=== PATIENT | male | born 1975 | race Caucasian/White ===

== ENCOUNTER 2016-11-20 22:45 | Emergency (ER) | payer BC, OTHER ==
[~2016-11-20] VITALS: Ht 185.4 cm; Wt 97.5 kg
[2016-11-20 22:53] VITALS: BP 162/108
[2016-11-20] MEDS ORDERED: CEFTRIAXONE 1 G VIAL ONE (23:24)
[2016-11-20] MEDS ORDERED: AZITHROMYCIN 250 MG TABLET ONE (23:24)
[2016-11-20] MEDS ORDERED: METRONIDAZOLE 500 MG TABLET ONE (23:24)
[2016-11-20] MEDS ORDERED: PENICILLIN G BENZATHINE 2.4 MMU/4 ML ML IM ONE ×2 (23:25→23:30)
[2016-11-20] MEDS ORDERED: LIDOCAINE /MPF 1% VIAL 5 ML VIAL ONE (23:25)
[2016-11-20] MEDS ORDERED: CEFTRIAXONE 500 MG VIAL ONE (23:28)
[2016-11-20] MEDS ORDERED: METRONIDAZOLE 500 MG TABLET PO ONE (23:30)
[2016-11-20] MEDS ORDERED: AZITHROMYCIN 250 MG TABLET PO ONE (23:30)
[2016-11-20] MEDS ORDERED: CEFTRIAXONE 500 MG VIAL IM ONE (23:30)
== END 2016-11-21 00:02 | disposition home or self-care (01) ==
LOC: ER 22:48
DX: A64 Unspecified sexually transmitted disease (principal); I10 Essential (primary) hypertension
CPT/HCPCS: 96372 ×2; 99284; J0558; J0696 ×2; J3490